=== PATIENT | male | born 1990 | race Caucasian/White ===

== ENCOUNTER 2024-11-11 18:59 | Emergency (ER) | payer OTHER ==
[~2024-11-11] VITALS: Ht 185.4 cm; Wt 102.9 kg
[2024-11-11] MEDS ORDERED: MECL-209 PO (23:22)
[2024-11-11] MEDS ORDERED: ONDA-282 PO (23:22)
[2024-11-11] MEDS: ONDANSETRON 4MG ORAL DISINTEGRATING TAB PO ONE (23:34)
[2024-11-11] MEDS: MECLIZINE 25 MG TABLET PO ONE (23:34)
[2024-11-11 23:46] VITALS: BP 140/84; TEMP 98.4; O2SAT 98
== END 2024-11-11 23:48 | disposition home or self-care (01) ==
LOC: M ED 18:59
DX: H81.10 Benign paroxysmal vertigo, unspecified ear (principal); Z79.899 Other long term (current) drug therapy